=== PATIENT | female | born 1990 | race Two or more races ===

== ENCOUNTER 2023-04-13 07:04 | Outpatient (OUT) | payer BC, SELFPAY ==
[2023-04-13 07:51] LABS: Creatinine Urine Random 146.16 mg/dL (20.00-300.00); Microalbum Creatinine Ratio Ur 8.8 mg/g (0.0-29.9); Microalbumin Urine Random <1.3 mg/dL (<=30.0)
[2023-04-13 08:18] LABS: Albumin Level 3.5 g/dL (3.4-5.0); Anion Gap 10.6; BUN Creatinine Ratio 23.4; Calcium 8.8 mg/dL (8.5-10.1); Chloride 104 mmol/L (98-107); Chol HDL Ratio 3.2; Cholesterol 211 mg/dL (<=200); Estimated GFR (African America >60 (>=60); Estimated GFR (Non-African Ame >60 (>=60); Glucose 136 mg/dL (74-106); HDL Cholesterol 65 mg/dL (40-60); Phosphorus 4.7 mg/dL (2.6-4.7); Potassium 4.6 mmol/L (3.5-5.1); Sodium 139 mmol/L (136-145); Triglycerides 69 mg/dL (<=150); VLDL CHOLESTEROL 13.8 mg/dL
== END 2023-04-13 07:05 | disposition home or self-care (01) ==
PROVIDERS: PCP Internal Medicine; Visit Provider Internal Medicine
DX: E10.65 Type 1 diabetes mellitus with hyperglycemia (principal); Z71.3 Dietary counseling and surveillance; Z79.4 Long term (current) use of insulin; Z96.41 Presence of insulin pump (external) (internal)
CPT/HCPCS: 36415; 80061; 80069; 82043; 82306; 82570

== ENCOUNTER 2024-06-04 06:02 | Outpatient (OUT) | payer BC, SELFPAY ==
--- OUTSIDE RECORDS SUMMARY | 2024-06-04 06:07 | XMS_ITS | CCD ---
Author Organization [facility] Inform ion [facility] Care Team Providers Care Commercial Lending Vice President Name Role Phone Saadia Cotto Unavailable DR PABLO ZARATE Admitting Unavailable TESSA, DR SHAH Primary Care Unavailable TESSA, DR SHAH Consulting Unavailable TESSA, DR SHAH Attending Unavailable FE RUSSO Attending Unavailable TESSA, DR SHAH Primary Care Unavailable FE RUSSO Admitting Unavailable FE RUSSO Consulting Unavailable Unallocated MD, Noms Provider Primary Care Provi jorje FE RUSSO Attending Unavailable Allergies Allergy Classification Reported Allergen(s) Allergy Type Date of Onset Reaction(s) Facility (1 source) Sulfacetamide Drug Allergy Unknown [facility] Other (1 source) Sulfacetamide / Sulfur Drug Allergy rash [facility] Other (3 sources) metFORMIN Drug Allergy 3 [facility] (3 sources) Sulfonamides (Antibiotic) Drug Allergy 3 [facility] Medications Current Medications Medication Drug Class(es) Dates Sig (Normalized) Sig (Original) Continuous Glucose Assistant Grocery Store Manager (Dexcom G6 polarity tester) device (3 sources) Continuous Gluco se Assistant Grocery Store Manager (Dexcom G6 polarity tester) device Inject 1 Device under the skin if needed Use as instructed Active Continuous Glucose Sensor (Dexcom G6 Sensor) misc (3 sources) Start: 09-27-2023 Continuous Glucose Sensor (Dexcom G6 Sensor) misc 1 Device Every 10 (ten) days 09/27/2023 Active Continuous Glucose Transmitter (Dexcom G6 transmitter) misc (3 sources) Start: 09-27-2023 Continuous Glucose Transmitter (Dexcom G6 transmitter) misc 1 each every 3 (three) months 09/27/2023 Active Insulin Disposable Pump (Omnipod 5 [id number] Pods Gen 5) misc (3 sources) Start: 09-27-2023 Insulin Disposable Pump (Omnipod 5 [id number] Pods Gen 5) misc 1 each every 3rd (third) day 09/27/2023 Active insulin lispro 100 unt/ml injectable solution (4 sources) Insulin Analog HumaLOG 100 UNIT /ML solution Active HumaLOG KwikPen 100 UNIT/ML as directed Subcutaneous Active 24 hr venlafaxine 150 mg extended release oral capsule (4 sources) Serotonin and Norepinephrine Reuptake Inhibitor take 1 capsule by mouth once daily venlafaxine XR (Effexor XR) 150 MG 24 hr capsule Take 1 capsule by mouth Daily Do not crush or chew. Active Effexor Active Completed/Discontinued Medications Medication Drug Class(es) Dates Sig (Normalized) Sig (Original) acyclovir 0.05 mg/mg topical ointment (1 source) Herpesvirus Nucleoside Analog DNA Polymerase Inhibitor, Herpes Simplex Virus Nucleoside Analog DNA Polymerase Inhibitor, Herpes Zoster Virus Nucleoside Analog DNA Polymerase Inhibitor Start: 07-20-2016 Acyclovir 5 % 1 application to affected area Externally Six times a day Jul, Not-Taking amoxicillin 875 mg oral tablet (1 source) Penicillin-class Antibacterial Start: 04-24-2018 take 1 tablet by mouth every twelve hours Amoxicillin 875 MG 1 tablet Orally every 12 hrs for 7 days Apr, Not-Taking Crutches-Aluminum 1 (1 source) Start: 02-22-2016 Crutches-Aluminum 1 as directed Feb, Not-Taking fluticasone propionate 0.05 mg/actuat metered dose nasal spray (1 source) Corticosteroid Start: 04-24-2018 take 1 spray(s) nasal route once daily Fluticasone Propionate 50 MCG/ACT 1 spray in each nostril Nasally Once a day for 21 days Apr, Not-Taking insulin detemir 100 unt/ml injectable solution (1 source) Insulin Analog Levemir 100 UNIT/ML Subcutaneous Not-Taking (1 source) Not-Taking Lantus 100 UNITS CARTRIDGE 3ML 5'S (1 source) Lantus 100 UNITS CARTRIDGE 3ML 5'S as directed for 90 Not-Taking Problems Active Problems Problem Classification Problem Date Documented Da te Episodic/Chronic Administrative/social admission (2 sources) Patient encounter status; Translations: [Dietary counseling and surveillance] 03-06-2024 Episodic Diabetes mellitus with complications (6 sources) Type 1 diabetes mellitus with hyperglycemia; Translations: [Hyperglycemia due to type 1 diabetes mellitus] Onset: 12-24-2021 Chronic Diabetes mellitus with complications (1 source) Diabetes mellitus with complications; Translations: [Diabetes mellitus with unspecified complication type I, uncontrolled] Diabetes mellitus without complication (2 sources) Patient encounter status; Translations: [Encounter for fitting and adjustment of insulin pump] 03-06-2024 Chronic Diabetes mellitus without complication (4 sources) Insulin pump present; Translations: [Insulin pump status] Onset: 12-25-2021 03-06-2024 Episodic Nutritional deficiencies (2 sources) Vitamin D deficiency; Translations: [Vitamin D deficiency, unspecified] 03-06-2024 Chronic Other aftercare (1 source) long term care social worker (current) use of insulin; Translations: [VIDEO TECHNICIAN CURRENT USE OF INSULIN] Onset: 12-25-2021 Episodic Other aftercare (2 sources) Long-term current use of insulin; Translations: [alf (current) use of insulin] 03-06-2024 Episodic Unclassified (1 source) DKA, type 1; Translations: [DKA, type 1] Unclassified (1 source) Long-term current use of insulin; Translations: [Insulin long-term use] Unclassified (2 sources) CONTACT W/AND (SUSP) EXPOS COVID-19; Translations: [CONTACT W/AND (SUSP) EXPOS COVID-19] Onset: 05-16-2021 Viral infection (1 source) COVID-19; Translations: [COVID-19] Onset: 05-16-2021 Past or Other Problems Problem Classification Problem Date Documented Da te Episodic/Chronic Other non-traumatic joint disorders (1 source) Pain in left ankle and joints of left foot Onset: 04-20-2021 Resolved: 04-20-2021 Episodic Sprains and strains (1 source) Sprain of unspecified ligament of left ankle, initial encounter Onset: 04-20-2021 Resolved: 04-20-2021 Episodic Unclassified (1 source) CONTACT W/AND (SUSP) EXPOS COVID-19; Translations: [CONTACT W/AND (SUSP) EXPOS COVID-19] Onset: 05-12-2021 Results Test Name Value Interpretation Reference Range Facility Glucose (Bld) [Mass/Vol]Orde red By: Danna Mcgowan on 03-06-2024 Glucose Blood, POC 165 mg/dL [facility] 03-06-2024 HbA1c (Bld) [Mass fraction] 7 % [facility] No Panel InformationOrdered By: Danna Mcgowan on 03-06-2024 [facility]-PEPT[facility], SERUMon 2 C-Peptide, Serum <0.1 Critically low 1.1-4.4 [facility] Comment on above: Result Comment: C-Pe ptide reference interval is for fasting patients. Performed By: #### C PEPT #### [facility] [address] [place] [address] Dr. Jarteh Davies MICROALBUMIN/ CREATININE RAT IOon 12-25-2021 Albumin, Urine 7.8 ug/mL Normal Not Estab. [facility] Comment on above: Performed By: #### M ALBCRL #### [facility] [address] [address] [address] Jareth Davies Albumin/ Creatinine Ratio 4 mg/g creat Normal 0-29 [facility] Comment on above: Result Comment: Norm al: 0 - 29 Moderately increased: 30 - 300 Severely increased: >300 Performed By: #### M ALBCRL #### [facility] [address] [address] [address] Jareth Davies Creatinine, Urine 215.7 mg/dL Normal Not Estab. [facility] Comment on above: Performed By: #### M ALBCRL #### [facility] [address] [address] [address] Jareth Davies VIT D 25-OH L[facility]ORPon 2021 Vitamin D, 25-Hydroxy 16.7 ng/mL Critically low 30.0-100.0 [facility] Comment on above: Result Comment: Spec imen received hemolyzed. Clinical correlation indicated. Vitamin D deficiency has been defined by the [place] of Medicine and an Endocrine Society practice guideline as a level of serum 25-OH vitamin D less than 20 ng/mL (1,2). The Endocrine Society went on to further define vitamin D insufficiency as a level between 21 and 29 ng/mL (2). 1. IOM ([place] of Medicine). 2010. Dietary reference intakes for calcium and D. [place]: The National Academies Press. 2. Fiorella MF, Louise CHAVARRIA, Bambi RONDON, et al. Evaluation, treatment, and prevention of vitamin D deficiency: an Endocrine Society clinical practice guideline. JCEM. 2010; 96(7):1911-30. Performed By: #### V ITADLC #### [facility] [address] [place] [address] Dr. Jareth Davies LIPID PROFILEon 12-24-2021 CHOL-HDL RATIO NORM SEE BELOW Normal [facility] Comment on above: Result Comment: 3.3 - 4.4 LOW RISK 4.4 - 7.1 AVERAGE RISK 7.1 - 11.0 MODERATE RISK >11.0 HIGH RISK Performed By: #### L IPID, RENAL #### [facility] [address] [place] [address] Dr. Jareth Davies Cholesterol [Mass/Vol] 195 mg/dL Normal <=200 [facility] Comment on above: Performed By: #### L IPID, RENAL #### [facility] [address] [place] [address] Dr. Jareth Davies Cholesterol in HDL [Mass/Vol] 60 mg/dL Normal 40-60 [facility] Comment on above: Performed By: #### L IPID, RENAL #### [facility] [address] [address] [address] Jareth Davies Cholesterol in LDL [Mass/Vol] 122.4 mg/dL Normal [facility] Comment on above: Performed By: #### L IPID, RENAL #### [facility] [address] [place] [address] Dr. Jareth Davies Cholesterol.total/Chol esterol in HDL [Mass ratio] 3.3 {ratio} Normal [facility] Comment on above: Performed By: #### L IPID, RENAL #### [facility] [address] [address] [address] Jareth Davies HDL NORMAL > or = 60 mg/dl - LOW CARDIOVASCULAR RISK <40 mg/dl - HIGH CARDIOVASCULAR RISK Normal [facility] Comment on above: Performed By: #### L IPID, RENAL #### [facility] [address] [address] [address] Jareth Davies LDL CALC NORMAL SEE BELOW Normal [facility] Comment on above: Result Comment: <100 mg/dl OPTIMAL 100 - 129 mg/dl NEAR OR ABOVE OPTIMAL 130 - 159 mg/dl BORDERLINE HIGH 160 - 189 mg/dl HIGH >190 mg/dl VERY HIGH Performed By: #### L IPID, RENAL #### [facility] [address] [address] [address] Jareth Davies Triglyceride [Mass/Vol] 63 mg/dL Normal <=150 [facility] Comment on above: Performed By: #### L IPID, RENAL #### [facility] [address] [address] [address] Jareth Davies VLDL CALC 12.6 mg/dL Normal [facility] Comment on above: Performed By: #### L IPID, RENAL #### [facility] [address] [address] [address] Jareth Davies RENAL FUNCTION PANELon 12-24 Albumin [Mass/Vol] 3.5 g/dL Normal 3.4-5.0 [facility] Comment on above: Performed By: #### L IPID, RENAL #### [facility] [address] [address] [address] Jareth Davies Calcium [Mass/Vol] 8.9 mg/dL Normal 8.5-10.1 [facility] Comment on above: Performed By: #### L IPID, RENAL #### [facility] [address] [address] [address] Jareth Davies Chloride [Moles/Vol] 103 mmol/L Normal 98-107 [facility] Comment on above: Performed By: #### L IPID, RENAL #### [facility] [address] [address] [address] Jareth Davies CO2 [Moles/Vol] 29.7 mmol/L Normal 21.0-32.0 [facility] Comment on above: Performed By: #### L IPID, RENAL #### [facility] [address] [place] [address] Dr. Jareth Davies Creatinine [Mass/Vol] 0.66 mg/dL Normal 0.55-1.02 [facility] Comment on above: Performed By: #### L IPID, RENAL #### [facility] [address] [address] [address] Jareth Davies EGFR-AF CYPRIOT >60 Normal >=60 [facility] Comment on above: Performed By: #### L IPID, RENAL #### [facility] [address] [address] [address] Jareth Davies EGFR-NON AF CYPRIOT >60 Normal >=60 [facility] Comment on above: Performed By: #### L IPID, RENAL #### [facility] [address] [place] [address] Dr. Jareth Davies Glucose [Mass/Vol] 80 mg/dL Normal 74-106 [facility] Comment on above: Performed By: #### L IPID, RENAL #### [facility] [address] [address] [address] Jareth Davies Phosphate [Mass/Vol] 5.0 mg/dL Critically high 2.6-4.7 [facility] Comment on above: Performed By: #### L IPID, RENAL #### [facility] [address] [place] [address] Dr. Jareth Davies Potassium [Moles/Vol] 4.0 mmol/L Normal 3.5-5.[address] [facility] Comment on above: Performed By: #### L IPID, RENAL #### [facility] [address] [address] [address] Jareth Davies Sodium [Moles/Vol] 139 mmol/L Normal 136-145 [facility] Comment on above: Performed By: #### L IPID, RENAL #### [facility] [address] [address] [address] Jareth Davies Urea nitrogen [Mass/Vol] 14.0 mg/dL Normal 7.0-18.[address] [facility] Comment on above: Performed By: #### L IPID, RENAL #### [facility] [address] [address] [address] Jareth Davies Covid-19 PCR ([facility])on SARS-CoV-2 (COVID-19) RNA JOSE+probe Ql (Unsp spec) Detected Critically abnormal NOT DETECTED [facility] Comment on above: Result Comment: This test is not yet approved or cleared by the [place] FDA. When there are no FDA-approved or cleared tests available, and other criteria are met, FDA can make tests available under an emergency access mechanism called an Emergency Use Authorization (EUA). The EUA for this test is supported by the [place] of Health and Human Service's (HHS's) declaration that circumstances exist to justify the emergency use of in vitro diagnostics for the detection and/or diagnosis of the virus that causes COVID-19. This EUA will remain in effect (meaning this test can be used) for the duration of the COVID-19 declaration justifying emergency of IVDs, unless it is terminated or revoked by FDA (after which the test may no longer be used). Performed By: #### C VDTB #### [facility] [address] [place] [address] Dr. Jareth Davies XR ankle LT min 3V*on 2020 XR ankle LT min 3V* [facility] [place] [address] XRay Report Signed Patient: Wanda Oquendo MR#: [id number] : 1990 Acct:[id number] Age/Sex: 30 / F ADM Date: 04/20/21 Loc: XDUCLY Room: Type: [facility] Attending Dr: Saadia Cotto APRN Ordering Provider: Saadia Cotto APRN Date of Service: 04/20/21 XR/XR ankle LT min 3V*: Acute left ankle pain Copies to: Saadia Cotto APRN 3views LEFTankle COMPARISON:None HISTORY: LEFT ankle injury. Lateral soft tissue swelling identified. No fracture or dislocation seen. XR/XR ankle LT min 3V* IMPRESSION: LEFT soft tissue swelling. No acute bony findings. Impression dictated by: Sean Vegas M.D.04/20/2021 4:14 PM Dictation Location: [place] [address] Transcribed By: [facility] 04/20/211613 Dictated By: Sean Vegas DO 04/20/211612 Signed By: 04/20/21 161 Normal [facility] XR ankle LT min 3V* [facility] [employer] Other XR ankle LT min 3V* [facility] [employer] Other XR ankle LT min 3V* [address] [place] [address] [employer] Other XR ankle LT min 3V* [place] [address] [facility] Other XR ankle LT min 3V* XRay Report [facility] Other XR ankle LT min 3V* Signed [facility] Other XR ankle LT min 3V* Patient: Wanda Oquendo MR#: [id number] [facility] Other XR ankle LT min 3V* 0741 [facility] Other XR ankle LT min 3V* : 1990 Acct:[id number] [facility] Other XR ankle LT min 3V* Age/Sex: 30 / F ADM Date: 04/20/21 [facility] Other XR ankle LT min 3V* Loc: XDUCLY Room: Type: [facility] Other XR ankle LT min 3V* Attending Dr: Saadia Cotto APRN [facility] Other XR ankle LT min 3V* Ordering Provider: Saadia Cotto APRN [facility] Other XR ankle LT min 3V* Date of Service: 04/20/21 [facility] Other XR ankle LT min 3V* XR/XR ankle LT min 3V*: Acute left ankle pain [facility] Other XR ankle LT min 3V* Copies to: Saadia Cotto APRN [facility] Other XR ankle LT min 3V* 3views LEFTankle [facility] Other XR ankle LT min 3V* COMPARISON:None [facility] Other XR ankle LT min 3V* HISTORY: LEFT ankle injury. [facility] Other XR ankle LT min 3V* Lateral soft tissue swelling identified. No fracture or dislocation seen. [facility] Other XR ankle LT min 3V* XR/XR ankle LT min 3V* [facility] Other XR ankle LT min 3V* IMPRESSION: LEFT soft tissue swelling. No acute bony findings. [facility] Other XR ankle LT min 3V* Impression dictated by: Sean Vegas M.D.04/20/2021 4:14 PM [facility] Other XR ankle LT min 3V* Dictation Location: [place] [address] [facility] Other XR ankle LT min 3V* Transcribed By: RADHA 04/20/21 161 [facility] Other XR ankle LT min 3V* Dictated By: Sean Vegas DO 04/20/211612 [facility] Other XR ankle LT min 3V* Signed By: [facility] Other XR ankle LT min 3V* 04/20/21 161 No rt [facility] Other Vital Signs Date Time Vital Sign Value Performing Clinician Facility 03-06-2024 14:43-0400 Body height 172.7 cm Fe Russo MD Work Phone: [facility] 03-06-2024 14:43-0400 Body mass index (BMI) [Ratio] 33.6 kg/m2 Fe Russo MD Work Phone: [facility] 03-06-2024 14:43-0400 Body weight 100.25 kg Fe Russo MD Work Phone: [facility] 03-06-2024 14:43-0400 Diastolic blood pressure 74 mm[Hg] Fe Russo MD Work Phone: [facility] 03-06-2024 14:43-0400 Heart rate 88 /min Fe Russo MD Work Phone: [facility] 03-06-2024 14:43-0400 Respiratory rate 18 /min Fe Russo MD Work Phone: [facility] 03-06-2024 14:43-0400 Systolic blood pressure 140 mm[Hg] Fe Russo MD Work Phone: [facility] 04-20-2021 15:55-0500 Body height 170.18 cm Saadia Ginty Other [facility] Other 04-20-2021 15:55-0500 Body mass index (BMI) [Ratio] 37.77 kg/m2 Saadia Ginty Other [facility] Other 04-20-2021 15:55-0500 Body temperature 97.9 [degF] Saadia Ginty Other [facility] Other 04-20-2021 15:55-0500 Body weight 109.41 kg Saadia Ginty Other [facility] Other 04-20-2021 15:55-0500 Diastolic blood pressure 87 mm[Hg] Saadia Ginty Other [facility] Other 04-20-2021 15:55-0500 Respiratory rate 18 /min Saadia Ginty Other [facility] Other 04-20-2021 15:55-0500 SaO2% (BldA) [Mass fraction] 97 % Saadia Ginty Other [facility] Other 04-20-2021 15:55-0500 Systolic blood pressure 138 mm[Hg] Saadia Ginty Other [facility] Other Encounters Encounter Date Encounter Type Care Provider Facility Start: 03-06-2024 End: 03-06-2024 Office outpatient visit 40 minutes Fe Russo MD Work Phone: [facility] Comment on above: Type 1 diabetes [place] with hyperglycemia (HCC) (CMS/HCC) (Primary Dx); Insulin long-term use (CMS/HCC); Vitamin D deficiency; Encounter for dietary consultation; Insulin pump in place; Encounter for fitting or adjustment of insulin pump Start: 03-06-2024 End: 03-06-2024 ambulatory FE RUSSO Not Available Start: 03-06-2024 End: 03-06-2024 Estuardo flowsheet Fe Russo MD Work Phone: [facility] Start: 03-06-2024 End: 03-06-2024 Estuardo flowsedwina Russo MD Work Phone: [facility] Start: 12-24-2021 End: 12-25-2021 ambulatory FE RUSSO Facility:[facility] Start: 05-12-2021 End: 05-12-[address] PABLO ZARATE Facility:[facility] Start: 04-20-2021 End: 04-20-2021 ambulatory Saadia Cotto Other [facility] Other Start: 04-20-2021 Office outpatient vi sit 15 minutes Saadia Cotto [facility] Procedures Date Procedure Procedure Detail Performing Clinician Start: 03-06-2024 Gluc bld gluc mntr d ev cleared fda spec home use Fe Russo MD Work Phone: Plan of Treatment Date Care Activity Detail Author Start: 02-08-2028 Screening for malign ant neoplasm of cervix [facility] Start: 06-06-2024 Hemoglobin A1c measurement Diabetes: Hemoglobin A1C [facility] Start: 06-05-2024 End: 06-05-2024 Patient encounter procedure 06/05/2024 2:50 PM EST Office Visit [facility] [address] [place] [address] Fe Russo MD [address] [place] [address] [facility] Start: 03-06-2024 End: 03-06-2024 Patient encounter procedure 03/06/2024 2:40 PM EDT Office Visit [facility] [address] [place] [address] Fe Russo MD [address] [place] [address] Type 1 diabetes mellitus with hyperglycemia (HCC) ([facility]) [facility] Comment on above: Type 1 diabetes [place] with hyperglycemia (HCC) ([facility]) Start: 03-06-2024 End: 03-06-2025 25-hydroxyvitamin D3 [Mass/volume] in Serum or Plasma Vitamin D 25 hydroxy Total Lab Routine Vitamin D deficiency Expected: 03/06/2024 (Approximate), Expires: 03/06/2025 [facility] Comment on above: Expected: 03/06/2024 (Approximate), Expires: 03/06/2025 Start: 03-06-2024 End: 03-06-2025 C-peptide C-peptide Lab Routine Type 1 diabetes mellitus with hyperglycemia (HCC) ([facility]/HCC) Expected: 03/06/2024 (Approximate), Expires: 03/06/2025 [facility] Work Phone: Comment on above: Expected: 03/06/2024 (Approximate), Expires: 03/06/2025 Start: 03-06-2024 End: 03-06-2025 Lipid 1996 panel - Serum or Plasma Lipid panel Lab Routine Type 1 diabetes mellitus with hyperglycemia (HCC) ([facility]/HCC) Expected: 03/06/2024 (Approximate), Expires: 03/06/2025 [facility] Comment on above: Expected: 03/06/2024 (Approximate), Expires: 03/06/2025 Start: 03-06-2024 End: 03-06-2025 Microalbumin/Creatinine panel in random Urine Microalbumin / creatinine urine ratio Lab Routine Type 1 diabetes mellitus with hyperglycemia (HCC) ([facility]) Expected: 03/06/2024 (Approximate), Expires: 03/06/2025 [facility] Comment on above: Expected: 03/06/2024 (Approximate), Expires: 03/06/2025 Start: 03-06-2024 End: 03-06-2025 Renal function panel Renal function panel Lab Routine Type 1 diabetes mellitus with hyperglycemia (HCC) ([facility]) Expected: 03/06/2024 (Approximate), Expires: 03/06/2025 [facility] Comment on above: Expected: 03/06/2024 (Approximate), Expires: 03/06/2025 Start: 01-08-2024 Influenza vaccination Influenza Vacc ine (#1) [facility] Start: 04-29-2023 Glaucoma screening Diabetes: R etinopathy Screening [facility] Start: 01-09-2021 Hemoglobin A1c measurement Diabetes: Hemoglobin A1C [facility] Start: 2009 Screening for malign ant neoplasm of cervix Pap Smear [facility] Start: 08-26-2007 Urine screening for protein Diabetes: Urine Protein Screening [facility] Immunizations Immunization Date Immunization Notes Care Provider Fa cility 04-13-2021 influenza virus vacc ine, unspecified formulation Fe Russo MD Work Phone: [facility] Payers Date Payer Category Payer [facility] [id number] 2022 Unknown [id number] 1990 Unknown [id number] 1990 Unknown [id number] 1988 Unknown [id number] 1961 Private Health Insurance [id number] Private Health Insurance [id number] Social History Date Type Detail Facility Unknown if ever smoked [facility] Other Start: 02-17-2024 Sex Assigned At [facility] Other Start: 02-17-2024 Tobacco smoking status GAIS Ex-smoker [facility] Start: 08-07-2009 End: 06-08-2020 History of tobacco use Current smoker [facility] Start: 08-07-2009 End: 06-08-2020 History of tobacco use Cigarette Smoker [facility] Start: 02-17-2024 Cigarettes smoked current (pack per day) - Reported 0.3 [facility] Start: 02-17-2024 Tobacco use and exposure Smokeless tobacco non-user [facility] Start: 02-17-2024 Alcoholic beverage intake Current drinker of alcohol (finding) [facility] Start: 1988 Sex assigned at Female [facility] Start: 02-01-2023 Gender identity Identifies as female gender (finding) [facility] Start: 02-01-2023 Sexual orientation Heterosexual (finding) [facility] History of Present illness Narrative 03-06-2024 Fe Russo MD - 03/06/2024 2:40 PM EDT Note Date & Type Note Facility 03-06-2024 History of Presen t illness Narrative Wanda Greene is a 33 y.o. female No ref. provider found presents with chief complaint of Diabetes and Follow-up HPI: IM : 02/2024 follow up visit on 03/06/2024 uncontrolled diabetes type 1. A1C in the office 7. She has an insulin pump. Basal rate running 12 am 1.6, 8 am 1.55, 5 pm 1.6; ICR 1:7; ISF 1:35. She is using 57% basal, 43% bolus, TDD 42. CGM 0-42-56 AVG 223. on omni pod DASH 5 with G6 DEXCOM. IM : 11/2023 follow up visit on 11/22/2023 uncontrolled diabetes type 1. A1C in the office 6.7. She has an insulin pump. Basal rate running 12 am 1.6, 8 am 1.55, 5 pm 1.6; ICR 1:7; ISF 1:35. She is using 54% basal, 46% bolus, TDD 46. CGM 1-71-23 AVG 155. on omni pod DASH 5 with G6 DEXCOM. IM : 08/2023 follow up visit on 08/31/2023 uncontrolled diabetes type 1. A1C in the office 6.5. She has an insulin pump. Basal rate running 12 am 1.6, 8 am 1.55, 5 pm 1.7; ICR 1:7; ISF 1:35. She is using 48% basal, 52% bolus, TDD 44. CGM 1-78-21 AVG 155. on omni pod DASH 5 with G6 DEXCOM. [email or web address] not covered IM : 04/2023 follow up visit on 04/20/2023 uncontrolled diabetes type 1. A1C in the office 6.6. She has an insulin pump. Basal rate running 12 am 1.6, 8 am 1.55, 5 pm 1.7; ICR 1:7; ISF 1:35. She is using 55% basal, 45% bolus, TDD 44. CGM 0-78-23 AVG 147. on omni pod DASH 5 with G6 DEXCOM. IM : 01/2023 follow up visit on 01/12/2023 uncontrolled diabetes type 1. A1C in the office 6.6. She has an insulin pump. Basal rate running 12 am 1.6; ICR 1:7; ISF 1:35. She is using 54% basal, 46% bolus, TDD 48. CGM 0-81-19 AVG 157. on omni pod DASH 5 with G6 DEXCOM. IM : 10/2022 follow up visit on 10/13/2022 uncontrolled diabetes type 1. A1C in the office 6. 7. She has an insulin pump. Basal rate running 12 am 1.6; 8 am 1.5; 6 pm 1.6; ICR 1:7; ISF 1:35. She is using 60% basal, 40% bolus, tdd 43. CGM 2-81-18 AVG 144. on omni pod DASH 5 with G6 DEXCOM IM : 07/2022 follow up visit on 07/07/2022 uncontrolled diabetes type 1. A1C in the office 6.8 . She has an insulin pump. Basal rate running 12 am 1.6; 8 am 1.5; 6 pm 1.6; ICR 1:7; ISF 1:35. She is using 73% basal, 27% bolus, tdd 42. CGM 0-84-17 AVG 160 IM : 03/2022 follow up visit on 04/05/2022 uncontrolled diabetes type 1. A1C in the office 6.5 . She has an insulin pump. Basal rate running 12 am 1.6; 8 am 1.5; 6 pm 1.6; ICR 1:6; ISF 1:30. She is using 75% basal, 25% bolus, tdd 48. IM : 12/2021 follow up visit on 12/29/2021 uncontrolled diabetes type 1. A1C in the office 8.2 . She has an insulin pump. Basal rate running 12 am 1.6; 8 am 1.5; 6 pm 1.6; ICR 1:7; ISF 1:39. She is using 60% basal, 40% bolus. lab GFR>60, TC 195, HDL 60, TG 63, LDL 122. CGM 80-383 meter avg 197 HPI: 09/2021 New patient sent from Dr. Zarate for uncontrolled diabetes type 1. A1C in the office 10.2. She has an insulin pump. Basal rate running 12 am 1.85; 8 am 1.95; 6 pm 1.65; ICR 1:10; ISF 1:40. She is using more; 94% basal, 10% bolus. SUBJECTIVE: MEDICATIONS: Current Outpatient Medications Medication Instructions Continuous Glucose Assistant [employer]cery Store Manager (Dexcom G6 polarity tester) device 1 Device, As needed Continuous Glucose Sensor (Dexcom G6 Sensor) misc 1 Device, Every 10 days Continuous Glucose Transmitter (Dexcom G6 transmitter) misc 1 each, Every 3 months HumaLOG 100 UNIT/ML solution Insulin Disposable Pump (Omnipod 5 [id number] Pods Gen 5) misc 1 each, Every 72 hours venlafaxine XR (Effexor XR) 150 MG 24 hr capsule 1 capsule, Daily ALLERGIES: Allergies Allergen Reactions Metformin Hcl Other Reaction(s): abd pain and diarrhea Sulfa Antibiotics Other Reaction(s): unknown Past Medical History: Diagnosis Date Abnormal weight gain Allergies Anxiety Bacterial vaginosis Dietary counseling and surveillance DM (diabetes mellitus), type 1 ([facility]) Encounter for fitting and adjustment of insulin pump Herpes simplex long term care social worker (current) use of insulin ([facility]) Presence of insulin pump Type 1 diabetes mellitus with hyperglycemia (HCC) ([facility]) Past Surgical History: Procedure Laterality Date TONSILLECTOMY 1994 WISDOM TOOTH EXTRACTION 06/2018 REVIEW OF SYMPTOMS: 14 POINT OF SYSTEM REVIEWED AND NEGATIVE OBJECTIVE: Constitutional: Afebrile @ home; no weakness or night sweats SKIN: No change in skin color; no itching, rash or lesions; no hair loss; HEENT: No HAs or injury; no dizziness; No difficulty with vision; no eye pain, discharge or lesions; no hearing loss or difficulty; no nasal discharge, NECK: No pain, limitation of motion, lumps or swollen glands RESP: No cough, wheezing or difficulty breathing. No CP with breathing; CARDIO: No CP , SOB or fatigue, No edema, palpitations or dyspnea with exertion GI: No N/V/D or abd. pain; good appetite with no recent change. No heart burn, liver or gallbladder disease; no rectal bleeding or pain : No urinary pain , frequency or odor. MUSCULOSKELETAL: No muscle pain or cramps; no extremity weakness.No joint pain, stiffness, swelling or limitation of movement NEUROLOGY: No H/O seizures, stroke or fainting. No weakness, tremors. Hematology: No bleeding problems or excessive bruising ENDOCRINE: No increase in hunger, thirst or urination; admits compliance to medical management plan Feet: numbness tingling , ulcers or skin break Lab Results Component Value Date HGBA1C 7.0 03/06/2024 Lab Results Component Value Date GLU 165 03/06/2024 GLU 80 12/24/2021 GLU 251 (H) 05/30/2019 Visit Vitals BP 140/74 Pulse 88 Resp 18 Ht 5' 8 Wt 221 lb BMI 33.60 kg/m Smoking Status Former BSA 2.19 m ASSESSMENT AND PLAN: Assessment/Plan Diagnoses and all orders for this visit: Type 1 diabetes mellitus with hyperglycemia (HCC) ([facility]) - POCT glucose manually resulted - POCT glycosylated hemoglobin (Hb A1C) docked device - C-peptide; Future - Microalbumin / creatinine urine ratio; Future - Lipid panel; Future - Renal function panel; Future We will continue the same settings. Insulin long-term use ([facility]) Vitamin D deficiency - Vitamin D 25 hydroxy Total; Future Encounter for dietary consultation Diet and exercise reviewed with the patient Insulin pump in place Encounter for fitting or adjustment of insulin pump Follow up in about 3 months (around 06/06/2024). documented in this encounter [facility] Evaluation note 04-20-2021 Note Date & Type Note Facility 04-20-2021 Evaluation note Encounter Date Diagnosis Assessment Notes Apr, Acute left ankle pain (ICD-10 - M25.572) Apr, Sprain of left ankle, unspecified ligament, initial encounter (ICD-10 - S93.402A) XR images and final report reviewed, no acute bony abnormalities. XR did show soft tissue swelling. Toradol injection given in office. RICE therapy discussed- rest extremity, avoid excessive or strenuous activity, complete activity as tolerated; ice area for 15-20 minutes at a time multiple times a day, ensure thin cloth barrier between skin and ice; JOAQUINA wrap area; keep extremity elevated. Advised patient to use OTC NSAIDs/Tylenol as directed as needed for discomfort. Instructed patient to follow up with PCP or ortho if sx do not improve in the next 5-7 days. Immediate eval by ER for warning s/sx as discussed. Patient verbalizes understanding and is agreeable to treatment plan [facility] Other Evaluation note Note Date & Type Note Facility Evaluation note Diagnosis Type 1 diabetes mellitus with hyperglycemia (HCC) ([facility])- Primary Insulin long-term use ([facility]) Encounter for long-term (current) use of insulin Vitamin D deficiency Encounter for dietary consultation Insulin pump in place Insulin pump status Encounter for fitting or adjustment of insulin pump Fitting and adjustment of insulin pump documented in this encounter [facility] History general Narrative - Reported Note Date & Type Note Facility History general Narrative - Reported Type Medical History diabetes Surgical History tonsillectomy Surgical History wisdom teeth Hospitalization History diabetes complications [facility] Other Summary Purpose Family History No Family History Records FoundNo Family History Records FoundNo Family History Records Found Advance Directives No Advanced Directives Records FoundNo Advanced Directives Records FoundNo Advanced Directives Records Found Additional Source Comments INFORMATION SOURCE (unrecogn ized section and content) DATE CREATED AUTHOR 04/28/2021 [facility] DATE CREATED AUTHOR AUTHOR'S ORGANIZ ATION 12/30/2021 [facility] DATE CREATED AUTHOR AUTHOR'S ORGANIZ ATION 03/08/2024 [facility] EPIC REASON FOR VISIT (unrecogniz ed section and content) Reason Comments Diabetes Follow-up Care Teams (unrecognized sec tion and content) Commercial Lending Vice President Relationship Specialty Start Date End Date Unallocated, Ama Vera MD [address] [place] [address] PCP - General 02/07/23 [employer] Vice President Relationship Specialty Start Date End Date Unallocated, [place] [address] PCP - General 02/07/23 FOR RECORDS PERTAINING TO PATIENTS WHO ARE OR HAVE BEEN ENROLLED IN A CHEMICAL DEPENDENCY/SUBSTANCEABUSE PROGRAM, SOME INFORMATION MAY BE OMITTED. This clinical summary was aggregated from multiple sources. Caution should be exercised in using it in the provision of clinical care. This summary normalizes information from multiple sources, and as a consequence, information in this document may materially change the coding, format and clinical context of patient data. In addition, data may be omitted in some cases. CLINICAL DECISIONS SHOULD BE BASED ON THE PRIMARY CLINICAL RECORDS. [facility] [employer] [facility]. provides no warranty or guarantee of the accuracy or completeness of information in this document.
[2024-06-04 06:58] LABS: Creatinine Urine Random 226.02 mg/dL (20.00-300.00); Microalbumin Urine Random <1.3 mg/dL (<=30.0)
[2024-06-04 09:22] LABS: Albumin Level 3.5 g/dL (3.4-5.0); Anion Gap 11.8; Calcium 8.8 mg/dL (8.5-10.1); Carbon Dioxide 27.6 mmol/L (21.0-32.0); Chloride 105 mmol/L (98-107); Chol HDL Ratio 3.2; Cholesterol 191 mg/dL (<=200); Estimated GFR (African America >60 (>=60 mL/min/1.73m^2); Estimated GFR (Non-African Ame >60 (>=60 mL/min/1.73m^2); Glucose 153 mg/dL (74-106); HDL Cholesterol 59 mg/dL (40-60); LDL Cholesterol Calculated 115.6 mg/dL; Potassium 4.4 mmol/L (3.5-5.1); Sodium 140 mmol/L (136-145); Triglycerides 82 mg/dL (<=150); VLDL CHOLESTEROL 16.4 mg/dL
[2024-06-05 11:11] LABS: C-Peptide, Serum <0.1 ng/mL (1.1-4.4)
== END 2024-06-04 06:03 | disposition home or self-care (01) ==
LOC: LAB 06:04
PROVIDERS: PCP Internal Medicine; Visit Provider Internal Medicine
DX: E55.9 Vitamin D deficiency, unspecified (principal); E10.65 Type 1 diabetes mellitus with hyperglycemia
CPT/HCPCS: 36415; 80061; 80069; 82043; 82306; 82570; 84681